=== PATIENT | female | born 1980 | race Caucasian/White ===

== ENCOUNTER 2021-04-21 12:24 | Emergency (ER) | payer OTHER ==
[~2021-04-21] VITALS: Ht 160 cm; Wt 69.4 kg
[~2021-04-21 12:24] MED LIST: ATARAX25 MG PO; BENADRYL25 MG PO; LIDEX0.05% T; NKHM; PREDNISONE20 MG PO
[2021-04-21 13:57] LABS: BILIRUBIN Negative (Negative); BLOOD 3+ (Negative); CLARITY Cloudy (Clear); COLOR Orange (Yellow); GLUCOSE Negative (Negative); KETONE Negative (Negative); LEUKO ESTERASE 2+ (Negative); NITRITE Negative (Negative); PH 5.5 (4.5-8.0); SPECIFIC GRAVITY 1.015 (1.001-1.030); UROBILINOGEN 0.2 E.U./dl (0.0-1.0)
[2021-04-21 14:24] LABS: BACTERIA 1+; RBC TNTC rbc/hpf (0-2); WBC 51-100 wbc/hpf (0-5)
[2021-04-21] MEDS ORDERED: CEFUROXIME AXE500 MG PO (17:17)
== END 2021-04-21 17:20 | disposition home or self-care (01) ==
LOC: ED 12:24
PROVIDERS: Emergency Medicine
DX: N39.0 Urinary tract infection, site not specified (principal)